=== PATIENT | female | born 1940 | race Caucasian/White ===

== ENCOUNTER 2024-04-20 16:32 | Observation (INO) | payer MEDICARE, OTHER, MEDICAID, SELFPAY ==
[2024-04-20 16:34] VITALS: BP 152/135; PULSE 74; RESP 16; TEMP 36.1; O2SAT 99; BMI 20.1
--- NOTE | 2024-04-20 16:41 | RAD_ITS ---
PROCEDURE: SHOULDER MIN 2 VIEWS REASON FOR EXAM: Trauma TECHNIQUE: Two views of the left shoulder COMPARISON: None. FINDINGS: No acute fracture or dislocation.Degenerative spurring is present at the humeral aspect of the glenohumeral joint. No soft tissue abnormality. The visualized lung zavaleta are clear. RAD/Shoulder min 2 Views IMPRESSION: 1. No acute findings. Reading Location: [facility]
--- NOTE | 2024-04-20 16:42 | EX.ED.UPPERE ---
HPI History of Present Illness Chief Complaint: Dislocation Narrative Narrative: 84-year-old female who denies significant past medical history, right hand dominant presents status post fall onto her left shoulder. She states that she was walking and tripped, and fell onto her left shoulder. She denies hitting her head or loss of consciousness, no neck pain or other injury. She now has pain diffusely throughout her left shoulder and upper arm with difficulty moving it. EMS noted deformity/possible dislocation of left shoulder. She did take a [place] tablet prior to arrival. PFSH [facility] Home Medications ?Medication ?Instructions ?Recorded ?Last Taken ?Type aspirin 81 mg tablet,delayed mg DAILY 04/20/24 Unknown History release atorvastatin 10 mg tablet mg DAILY 04/20/24 Unknown History calcium 500 mg (as tab 04/20/24 Unknown History carbonate)-vitamin D3 5 mcg (200 unit) tablet (Oyster Shell Calcium-Vitamin D3) clopidogrel 75 mg tablet mg DAILY 04/20/24 Unknown History donepezil 5 mg tablet mg DAILY 04/20/24 Unknown History ergocalciferol (vitamin D2) 1,250 04/20/24 Unknown History mcg (50,000 unit) capsule gabapentin 300 mg capsule mg 04/20/24 Unknown History isosorbide mononitrate 60 mg mg PO DAILY 04/20/24 Unknown History tablet,extended release 24 hr levothyroxine 50 mcg tablet mcg DAILY 04/20/24 Unknown History losartan 25 mg tablet mg DAILY 04/20/24 Unknown History metoprolol succinate 50 mg mg PO DAILY 04/20/24 Unknown History tablet,extended release 24 hr mirtazapine 7.5 mg tablet mg 04/20/24 Unknown History omega 2-bji-tby-fish oil 300 1 cap PO DAILY 04/20/24 Unknown History mg-1,000 mg capsule (Fish Oil) pantoprazole 40 mg tablet,delayed mg PO DAILY 04/20/24 Unknown History release sucralfate 1 gram tablet 04/20/24 Unknown History Allergy/AdvReac Type Severity Reaction Status Date / Time codeine AdvReac Intermediate UNKNOWN Verified 04/20/24 16:34 Social History Smoking Status: Never smoker ROS ROS ED ROS Narrative Review of systems positive for left shoulder pain and limited range of motion secondary to pain. No headache. No neck pain. Denies other injuries. Patient states she is status post mechanical fall. EXAM Physical Exam Narrative Exam Narrative: GCS 15. ABCs intact. HEENT examination grossly unremarkable, PERRL, EOMI. Neck soft and supple. Examination of the left shoulder shows diffuse tenderness to palpation about the proximal humerus. She is holding her shoulder anteriorly. No crepitance. No clavicular tenderness. Palpable radial pulse, left. Lungs clear to auscultation bilaterally. Cardiovascular examination reveals a regular rate and rhythm. Abdomen soft and nontender. Const Vital Signs: 04/20/24 16:34 Temperature 96.9 F L Temperature Source Temporal Pulse Rate 74 Respiratory Rate 16 Blood Pressure 152/135 H Blood Pressure Mean 140 Pulse Ox 99 MDM MDM MDM Narrative Medical decision making narrative: Differential diagnosis includes but not limited to shoulder contusion versus proximal humerus fracture versus left shoulder dislocation versus fracture dislocation. X-rays will be obtained of the left shoulder and saline inserted to administer analgesia. Patient received morphine initially as well as ondansetron. On my independent interpretation of the x-ray of the proximal humerus, there is an impacted fracture. I also discussed this with the radiologist. In discussion with the patient's and the patient herself, as she will be placed in a sling and swath, her activities of daily living are limited. I will obtain baseline laboratories and discussed the patient with the hospitalist for observation as she may require temporary placement in a long term facility versus home physical therapy/Occupational Therapy. Disposition is assigned observation. Patient is in stable condition. I discussed patient with Dr. Kavitha Mendez. She requested that x-rays of the left knee and of the left tibia and fibula be obtained secondary to tenderness to palpation. On my independent interpretation of the x-ray of the left tibia and fibula, there is no acute fracture. Additionally on my independent interpretation of the left knee, there is no evidence of acute fracture or effusion. I reviewed the radiology reports of these x-rays and they confirm my independent interpretations. Disposition was admitted in stable condition. History & Record Review Discussion w/independent historian: Patient Radiography X-Ray: Read by ED Physician and Fracture Management Discussion w/another healthcare provider: Hospitalist (Dr. Kavitha Mendez) and Radiologist Discharge Plan Dx/Rx/DC Orders Clinical Impression: Closed fracture of humerus, Physical debility, Hypertension Disposition Disposition: Acute Care Hospital [facility] Discharge Date/Time: 04/20/24 21:11
[2024-04-20] MEDS: Ondansetron 4 MG/2 ML Vial IV (16:50)
[2024-04-20] MEDS: Morphine 4 MG/ML Syringe IV (16:52)
[2024-04-20 18:20] LABS: Absolute Lymphocyte Count 1.48 X10^3/uL (0.83-4.51); Absolute Neutrophil Count 5.8 X10^3/uL (2.0-7.7); Basophil# 0.04 X10^3/uL; Basophil% 0.5 % (0-1); Eosinophil# 0.13 X10^3/uL; Eosinophils% 1.6 % (0-5); Hematocrit 33.6 % (37-47); Hemoglobin 10.3 g/dL (12.0-15.0); Lymphocyte # 1.48 X10^3/ul (0.83-4.51); Lymphocyte % 17.7 % (19-41); Mean Corp Hgb Conc 30.7 g/dL (32-36); Mean Corpuscular Hgb 27.1 pg (27.0-32.0); Mean Corpuscular Volume 88.4 fL (81-99); Mean Platelet Vol. 11.4 fl (6.2-12.0); Monocyte# 0.85 X10^3/uL; Monocyte% 10.2 % (0-10); NRBC Flagged by Analyzer 0 % (0-5); Neutrophil # 5.83 X10^3/uL (2.7-7.7); Neutrophil % 69.8 % (47-70); Platelet Count 346 K/mm3 (150-450); RBC Distribution Width CV 15.9 % (11.6-14.6); RBC Distribution Width SD 51.1 fl (35.1-43.9); White Blood Count 8.4 K/mm3 (4.4-11.0)
[2024-04-20 18:33] VITALS: BP 149/84; O2SAT 100
[2024-04-20 18:39] LABS: Anion Gap 10 (5-15); BUN 11 mg/dL (7-18); BUN/Creat Ratio 7.9 RATIO (10-20); Calcium,Total 9.3 mg/dL (8.5-10.1); Chloride 109 mmol/L (98-107); EST Glomerular Filtration Rate 38 mL/min (>60); Est Glom Filt Rate - Afr Amer 46 mL/min (>60); Estimated Creatinine Clearance 24.67 ml/min; Glucose 116 mg/dL (74-106); Potassium 3.8 mmol/L (3.5-5.1); Sodium Level 140 mmol/L (136-145)
[2024-04-20 19:17] VITALS: BP 149/84; PULSE 74; RESP 16; TEMP 36.1; O2SAT 100
[2024-04-20 20:00] VITALS: BP 130/88; PULSE 81; RESP 20; O2SAT 99
--- NOTE | 2024-04-20 20:10 | RAD_ITS ---
PROCEDURE: TIBIA FIBULA 2 VIEWS REASON FOR EXAM: Trauma, pain TECHNIQUE: 2 view(s) of the left tibia and fibula COMPARISON: None. FINDINGS: No fracture. No suspicious bone lesion. Normal alignment at the knee and ankle. Soft tissues are unremarkable. RAD/Tibia & Fibula 2 Views IMPRESSION: 1. No acute abnormality. Reading Location: [facility]
--- NOTE | 2024-04-20 20:10 | RAD_ITS ---
PROCEDURE: KNEE 4 OR MORE VIEWS REASON FOR EXAM: Trauma TECHNIQUE: 4 views of the left knee COMPARISON: 04/20/2024 FINDINGS: No fracture. No suspicious bone lesion. Normal alignment. No effusion. Soft tissues are unremarkable. RAD/Knee 4 or More Views IMPRESSION: 1. No acute abnormality. Reading Location: [facility]
[2024-04-20 20:34] VITALS: BMI 22.8
[2024-04-20 20:35] VITALS: BP 124/73; PULSE 71; RESP 15; TEMP 36.3; O2SAT 95
--- NOTE | 2024-04-20 20:48 | HP.PCM.HOS_ITS ---
HPI - General General Date of Admission: 04/20/24 Date of Service: 04/20/24 Chief Complaint: left shoulder pain HPI Narrative MANNY WHELAN, is a 84-year-old female with history of hypothyroidism, coronary disease, dementia, hypertension, GERD presented [facility] ED 04/20/2024 after a fall. She is right-hand dominant and fell onto her left shoulder. Fall was mechanical. Did not hit her head or lose consciousness. Does note pain through her shoulder prompting EMS call and patient was brought to the ED. In the ED patient alert but hypertensive but overall vitally stable, BMP with creatinine of 1.4 with no baseline and hemoglobin of 10.3. Shoulder x-ray interpreted by ED physician as nondisplaced impaction fracture, initial shoulder x-ray read as negative however after ED physician discussed with radiologist it was determined that there was a left nondisplaced impaction fracture along the lateral aspect of the humeral head. Given patient will be unable to care for self at home and family unable to help care for her hospitalist contacted for admission. Patient evaluated bedside and reports mechanical fall onto her left shoulder and states she tripped over something, denies hitting her head but did hit her left knee when she fell. ROS otherwise negative [facility] Home Medications ?Medication ?Instructions ?Recorded ?Last Taken ?Type aspirin 81 mg tablet,delayed mg DAILY 04/20/24 Unknown History release atorvastatin 10 mg tablet mg DAILY 04/20/24 Unknown Hi story calcium 500 mg (as tab 04/20/24 Unknown History carbonate)-vitamin D3 5 mcg (200 unit) tablet (Oyster Shell Calcium-Vitamin D3) clopidogrel 75 mg tablet mg DAILY 04/20/24 Unknown Hi story donepezil 5 mg tablet mg DAILY 04/20/24 Unknown Hi story ergocalciferol (vitamin D2) 1,250 04/20/24 Unknown Hi story mcg (50,000 unit) capsule gabapentin 300 mg capsule mg 04/20/24 Unknown History isosorbide mononitrate 60 mg mg PO DAILY 04/20/24 Unkn own History tablet,extended release 24 hr levothyroxine 50 mcg tablet mcg DAILY 04/20/24 Unknown History losartan 25 mg tablet mg DAILY 04/20/24 Unknown Hi story metoprolol succinate 50 mg mg PO DAILY 04/20/24 Unknow n History tablet,extended release 24 hr mirtazapine 7.5 mg tablet mg 04/20/24 Unknown History omega 9-vqa-ssz-fish oil 300 1 cap PO DAILY 04/20/24 U nknown History mg-1,000 mg capsule (Fish Oil) pantoprazole 40 mg tablet,delayed mg PO DAILY 04/20/24 Unknown History release sucralfate 1 gram tablet 04/20/24 Unknown History Allergy/AdvReac Type Severity Reaction Status Date / Time codeine AdvReac Intermediate UNKNOWN Verified 04/20/24 16:34 Social History Smoking Status: Never smoker ROS ROS Narrative General: Denies fever/chills HENT: Denies headache, denies stuffy nose, denies sore throat EYES: Denies changes in vision Resp: Denies cough, denies shortness of breath Cardiac: Denies chest pain GI: Denies abdominal pain, denies changes in bowel, denies nausea/vomiting : Denies changes in urination Extremity: Denies swelling MSK: Denies weakness, some left shoulder soreness as well as left knee and chapa soreness Neuro: Denies any numbness/tingling Heme: Denies any bleeding or bruising Skin: Denies rashes Psychiatric: No complaints voiced Vital Signs Vital Signs Vital Signs: 04/20/24 16:34 04/20/24 18:33 04/20/24 19:17 Temperature 96.9 F L 96.9 F L Temperature Source Temporal Pulse Rate 74 74 Respiratory Rate 16 16 Blood Pressure 152/135 H 149/84 H 149/84 H Blood Pressure Mean 140 105 105 Pulse Ox 99 100 100 Oxygen Delivery Method Room Air 04/20/24 20:00 Temperature Temperature Source Pulse Rate 81 Respiratory Rate 20 H Blood Pressure 130/88 H Blood Pressure Mean 102 Pulse Ox 99 Oxygen Delivery Method Weight Weight: 53.2 kg Body Mass Index (BMI) 20.1 Physical Exam Narrative General: Alert, no apparent distress HEENT: Atraumatic, normocephalic Eyes: Anicteric, normal conjunctiva, extraocular movements grossly intact Neck: Supple Respiratory: Clear to auscultation bilaterally, normal respiratory effort Cardiovascular: Regular rate and rhythm GI: Soft, nontender, nondistended Extremities: No edema Musculoskeletal: Left upper extremity sling in place, pain in left knee and left chapa Neuro: No overt focal neurological deficits Skin: Some bruising on left knee and left chapa more so than right Psych: Cooperative Results Lab / Micro Data 04/20/24 16:47 04/20/24 16:47 Labs: Laboratory Results - last 24 hr 04/20/24 16:47: WBC 8.4, RBC 3.80 L, Hgb 10.3 L, Hct 33.6 L, MCV 88.4, MCH 27.1, MCHC 30.7 L, RDW Std Deviation 51.1 H, RDW Coeff of Billy 15.9 H, Plt Count 346, MPV 11.4, Immature Gran % (Auto) 0.200, Neut % (Auto) 69.8, Lymph % (Auto) 17.7 L, Weber % (Auto) 10.2 H, Eos % (Auto) 1.6, Baso % (Auto) 0.5, Absolute Neuts (auto) 5.8, Absolute Lymphs (auto) 1.48, Nucleated RBC % 0, Sodium 140, Potassium 3.8, Chloride 109 H, Carbon Dioxide 21.0, Anion Gap 10, BUN 11, C reatinine 1.40 H, Estim Creat Clear Calc 24.67, Est GFR (MDRD) Af Amer 46 L, Est GFR (MDRD) Non-Af 38 L, BUN/Creatinine Ratio 7.9 L, Glucose 116 H, Calcium 9.3 Imaging Radiology Impression Shoulder X-Ray 04/20/24 16:41 IMPRESSION: 1. No acute findings. Reading Location: [facility] Assessment & Plan Assessment/Plan (1) Closed fracture of humerus: (2) Hypertension: (3) Physical debility: PLAN: Plan # Left shoulder pain, suspected left shoulder fracture -X-ray interpreted by ED and thought to be nondisplaced impaction fracture, this was discussed with radiologist who agreed that this was indicative of a left nondisplaced impaction fracture along the lateral aspect of the humeral head -On further review radiology interpretation did recommend additional shoulder radiograph could be considered for confirmation -Order repeat shoulder x-ray for better characterization for the a.m. -Pain control -PT/OT -Based on this fracture patient was placed in sling in the ED as they usually nonoperative -Will need to follow-up with Ortho #Dementia -Supportive care -Continue home donepezil # Suspect history of CAD -Patient poor historian as she has been given morphine but based on medication list it seems patient likely has history of CAD -She is on statin, clopidogrel, aspirin, Imdur, metoprolol -Will continue home medications #Hypothyroidism -Continue Synthroid #GERD -Continue PPI #Hypertension -Continue metoprolol and Imdur, hold losartan to allow room for pain medication adjustment #DVT ppx: Lovenox acute Kavitha Mendez MD Time spent in the patient's overall evaluation, decision-making process, review of diagnostic data, adjustment of management, discussion with other providers, nursing and ancillary staff involved in patient's care documentation, 56 Minutes Charges/Coding Visit Charges Inpatient E&M: 88747 Init Hosp L2
[2024-04-20] MEDS: Mirtazapine 15 MG Tablet 7.5 MG PO (23:00)
[2024-04-20] MEDS: Acetaminophen 500 MG Tablet 1000 MG PO (23:01)
[2024-04-20] MEDS: 0.9% Normal Saline (1000mL) 1,000 ML 50 ML IV (23:01)
[2024-04-20] MEDS: Arthritis Pain Compound 60 CLICK TUBE TOPICAL (23:02)
[2024-04-20] MEDS: Gabapentin 300 MG Capsule PO (23:10)
[2024-04-21 04:32] VITALS: BP 148/74; PULSE 67; RESP 15; TEMP 36.4; O2SAT 96
[2024-04-21] MEDS: oxyCODONE 5 MG Tablet 2.5 MG PO ×2 (04:45→09:45)
[2024-04-21] MEDS: Levothyroxine 50 MCG Tablet PO (04:45)
[2024-04-21] MEDS: Acetaminophen 500 MG Tablet 1000 MG PO ×3 (04:45→21:31)
[2024-04-21 06:49] LABS: Absolute Lymphocyte Count 1.44 X10^3/uL (0.83-4.51); Absolute Neutrophil Count 3.5 X10^3/uL (2.0-7.7); Basophil# 0.04 X10^3/uL; Basophil% 0.7 % (0-1); Eosinophil# 0.07 X10^3/uL; Eosinophils% 1.2 % (0-5); Hematocrit 29.2 % (37-47); Hemoglobin 9.1 g/dL (12.0-15.0); Lymphocyte # 1.44 X10^3/ul (0.83-4.51); Lymphocyte % 24.1 % (19-41); Mean Corp Hgb Conc 31.2 g/dL (32-36); Mean Corpuscular Hgb 27.3 pg (27.0-32.0); Mean Corpuscular Volume 87.7 fL (81-99); Mean Platelet Vol. 11.1 fl (6.2-12.0); Monocyte# 0.87 X10^3/uL; Monocyte% 14.6 % (0-10); NRBC Flagged by Analyzer 0 % (0-5); Neutrophil # 3.53 X10^3/uL (2.7-7.7); Neutrophil % 59.1 % (47-70); Platelet Count 298 K/mm3 (150-450); RBC Distribution Width CV 15.7 % (11.6-14.6); RBC Distribution Width SD 50.5 fl (35.1-43.9); Red Blood Count 3.33 M/mm3 (4.2-5.4)
[2024-04-21 07:17] LABS: Anion Gap 7 (5-15); BUN 14 mg/dL (7-18); BUN/Creat Ratio 13.5 RATIO (10-20); Calcium,Total 8.6 mg/dL (8.5-10.1); Chloride 111 mmol/L (98-107); Creatinine, Serum 1.04 mg/dL (0.55-1.02); EST Glomerular Filtration Rate 54 mL/min (>60); Est Glom Filt Rate - Afr Amer 65 mL/min (>60); Estimated Creatinine Clearance 28.41 ml/min; Glucose 100 mg/dL (74-106); Potassium 3.7 mmol/L (3.5-5.1); Sodium Level 140 mmol/L (136-145)
[2024-04-21 08:36] VITALS: PULSE 79
[2024-04-21] MEDS: Aspirin E.C. 81 MG Tablet PO (08:36)
[2024-04-21] MEDS: Pantoprazole Sodium 40 MG Tablet PO (08:36)
[2024-04-21] MEDS: Clopidogrel Bisulfate 75 MG Tablet PO (08:36)
[2024-04-21] MEDS: Donepezil HCl 5 MG Tablet PO (08:36)
[2024-04-21] MEDS: Metoprolol(XL)Succ 50 MG Tablet PO (08:36)
[2024-04-21] MEDS: Arthritis Pain Compound 60 CLICK TUBE TOPICAL ×2 (08:37→21:31)
[2024-04-21] MEDS: Isosorbide Mononitrate 60 MG Tablet PO (08:38)
[2024-04-21] MEDS: Atorvastatin Calcium 10 MG Tablet PO ×2 (08:39→21:31)
[2024-04-21] MEDS: Enoxaparin 30 MG/0.3 ML Syringe SC (08:40)
[2024-04-21] MEDS: Gabapentin 300 MG Capsule PO ×2 (08:40→21:31)
[2024-04-21 09:36] VITALS: BP 104/48; PULSE 79; RESP 16; TEMP 36.4; O2SAT 96
--- NOTE | 2024-04-21 10:46 | CASEMGMT ---
SHERI CORMIER Assessment: Face to Face with pt for initial transition planning/care coordination assessment. SHERI CORMIER introduced self and role at [facility], pt voices understanding and consents to assessment. Pt is A&O x4 and answers all questions appropriately at this time. Pt sitting up in chair in no distress. Care providers, pharmacy, and demographics verified/updated. Strata: 1 Admitting Dx: L shoulder pain concern for fracture. PCP: Elin Specialists: Denies Preferred Pharmacy: [facility] Insurance: [employer]IN [employer]EM[employer] Prescription Benefit: yes LNOK: Daughter, Valerie Living Arrangements: Pt lives with in 1 level home with 2 steps to enter. ADLs: Pt states I at baseline, has a in school suspension aide that comes and assists. Transportation: Pt provides transportation. DME: [facility]/SNF: Eduardo has a in school suspension aide. Pt states no concerns with going home at time of dc. Pt states no further concerns/needs. CM to follow. Advised pt to ask CM if any further question/concerns/needs arise, voices understanding. Pt Goal: Home Plan: Home, follow for safe DC plan.
[2024-04-21 11:27] VITALS: BP 98/42; PULSE 79; RESP 18; TEMP 36.4; O2SAT 100
--- NOTE | 2024-04-21 13:09 | RAD_ITS ---
EXAM: XR Left Shoulder Complete, 2 or More Views CLINICAL INDICATION: TECHNIQUE: Two or more views of the left shoulder. COMPARISON: No relevant prior studies available. FINDINGS: BONES/JOINTS: Cortical irregularity of the humeral neck, likely impacted fracture. No dislocation. SOFT TISSUES: Soft tissue swelling. RAD/Shoulder min 2 Views IMPRESSION: Cortical irregularity of the humeral neck, likely impacted fracture. Reading Location: [facility]
--- NOTE | 2024-04-21 14:19 | CASEMGMT ---
Addendum entered by Kaity Hurst 04/21/24 16:05: SHERI CORMIER into pt room, pt who is very PLATINUM is present as well as step dtr. states he has back fx and is there 24 hours a day for pt and can provide stability to her for walking but can't help if she falls. He state they have an aide that can increase hours to 15-20/wk through [employer]. He states pt only walks to the bathroom and to bed. He states she is stubborn and bullheaded like he is and she is a strong woman. Pt did not engage in this conversation at all, other than saying I am sick. Pt states he will be back tomorrow at 2pm to get pt. He is aware that this will depend if pt is medically ready and how her therapy session goes. He states pt will not go anywhere for rehab and pt confirms. SHERI CORMIER to follow. Step dtr does not offer any information to the conversation either. SHERI CORMIER to follow. Original Note: SHERI CORMIER into pt room, pt sitting up in bed in no distress. Pt states her was asking if she is coming home today. Discussed with pt to see if she has 24 hour care at home. She states her is always there and can assist her. She states he is in good health. SHERI CORMIER asked to call him and she states he has the same phone number as she does, noted he is not listed on contacts. Asked pt about her dtr listed, she states she does not have a dtr. Asked who this was and she states it is her step dtr. Pt denies need for any homegoing services, declines [facility]. Pt is oriented x3. TC to , no answer and no vm. TC to dtr listed, left vm requesting returned call.
--- NOTE | 2024-04-21 14:41 | CASEMGMT ---
Met with patient to complete CEBALLOS form. CEBALLOS form explained to patient who voiced understanding but stated she was too ill to sign form. Original form placed in pt?s chart and copy provided to patient. Dayanara Augustine, Discharge Planning Asst
[2024-04-21] MEDS: Ondansetron ODT 4 MG Tablet PO (14:58)
[2024-04-21 15:35] VITALS: BP 91/56; PULSE 71; RESP 16; TEMP 36.4; O2SAT 95
--- NOTE | 2024-04-21 19:51 | PN.HOSP_ITS ---
Reason for Visit Reason for Visit: Diagnoses Essential (primary) hypertension (04/20/24) Other malaise (04/20/24) Unspecified fracture of shaft of humerus, unspecified arm, initial encounter for closed fracture (04/20/24) Subjective Subjective Patient was seen and examined today, according to case management, patient's family wants to take the patient home tomorrow rather than have her go to a skilled care facility. Objective Data Objective Data Vital Signs: Vital Signs Temp Pulse Resp BP Pulse Ox O2 Del Method 97.5 F L 71 16 91/56 L 95 Room Air 04/21/24 15:35 04/21/24 15:35 04/21/24 15:35 04/21/24 15:35 04/21/24 15:35 04/21/24 15:35 Oxygen Delivery Method Room Air Weight: 51.2 kg Body Mass Index (BMI) 22.8 Intake & Output: Intake and Output for Last 24 Hours 04/19/24 04/20/24 04/21/24 23:59 23:59 23:59 Intake Total 0 / 200 1628.33 / 1628.33 Output Total 450 / 450 Balance 0 / 200 1178.33 / 1178.33 Lab / Micro Data 04/21/24 06:27 04/21/24 06:27 Labs: Laboratory Results - last 24 hr 04/21/24 06:27: WBC 6.0, RBC 3.33 L, Hgb 9.1 L, Hct 29.2 L, MCV 87.7, MCH 27.3, MCHC 31.2 L, RDW Std Deviation 50.5 H, RDW Coeff of Billy 15.7 H, Plt Count 298, MPV 11.1, Immature Gran % (Auto) 0.300, Neut % (Auto) 59.1, Lymph % (Auto) 24.1, [place] % (Auto) 14.6 H, Eos % (Auto) 1.2, Baso % (Auto) 0.7, Absolute Neuts (auto) 3.5, Absolute Lymphs (auto) 1.44, Nucleated RBC % 0, Sodium 140, Potassium 3.7, Chloride 111 H, Carbon Dioxide 22.0, Anion Gap 7, BUN 14, Creatinine 1.04 H, Estim Creat Clear Calc 28.41, Est GFR (MDRD) Af Amer 65, Est GFR (MDRD) Non-Af 54 L, BUN/Creatinine Ratio 13.5, Glucose 100, Calcium 8.6 Radiography Diagnostic Testing: Radiology Impression Knee X-Ray 04/20/24 20:10 IMPRESSION: 1. No acute abnormality. Reading Location: [facility] Tibia/Fibula X-Ray 04/20/24 20:10 IMPRESSION: 1. No acute abnormality. Reading Location: [facility] Shoulder X-Ray 04/21/24 13:09 IMPRESSION: Cortical irregularity of the humeral neck, likely impacted fracture. Reading Location: [facility] Physical Exam Const alert and no apparent distress General Appearance: cooperative, well kempt and well developed Orientation / Consciousness: awake, oriented to person and oriented to place HEENT normocephalic, head/scalp atraumatic and moist oral mucous membranes Eyes PERRL, EOMs intact bilaterally and conjunctivae normal Neck supple, no JVD, thyroid normal and no carotid bruits General: trachea midline Resp normal respiratory effort, no retractions, no use of accessory muscles and clear to auscultation bilaterally Auscultation: Negative for rales, rhonchi or wheezes Cardio regular rate, regular rhythm, S1 normal heart sound, S2 normal heart sound, no murmurs, no rub and no gallops GI normal to inspection, nondistended, normoactive bowel sounds, soft to palpation, non-tender and non-distended Extremity no clubbing, cyanosis or edema Extremity Narrative: Patient's left arm is in a sling at the time my examination Skin no rashes or lesions noted General Skin Exam: no breakdown Neuro CN's II-XII intact bilaterally, no focal motor deficits and no sensory deficits noted Sensorium / Orientation: awake, alert, oriented to person and oriented to place Speech: speech normal Psych Psych Narrative: Patient is a poor informant Assessment & Plan Assessment/Plan (1) Closed fracture of humerus: PLAN: Plan 1. Acute debility secondary to fracture of the proximal left humerus-PT and OT will continue to work with the patient, again patient's family want to take the patient home tomorrow, I will talk with case management concerning this. I talked briefly with orthopedic surgery by phone tonight (Dr. Martinez) he does not need to see the patient while she is hospitalized and will follow-up with her in the office as an outpatient. He recommended repeating x-rays in 1- 2 weeks and using a simple sling. #2 essential hypertension-patient will remain on her current medications #3 dementia-complicates care, management, recovery, and prognosis I will have nursing confirm her medications Total clinical time spent by myself addressing the patient's medical issues, reviewing her data, and collaborating with patient's care team: 35 minutes Charges/Coding Visit Charges Inpatient E&M: 03341 Subs Hosp L2
[2024-04-21 20:21] VITALS: BP 144/69; PULSE 73; RESP 15; TEMP 36.7; O2SAT 94
[2024-04-21] MEDS: Mirtazapine 15 MG Tablet 7.5 MG PO (21:30)
[2024-04-22 02:23] VITALS: BP 120/66; PULSE 65; RESP 16; TEMP 36.6; O2SAT 93
[2024-04-22] MEDS: Levothyroxine 50 MCG Tablet PO (05:09)
[2024-04-22] MEDS: Acetaminophen 500 MG Tablet 1000 MG PO ×2 (05:09→14:08)
[2024-04-22 08:00] VITALS: BP 123/58; PULSE 78
[2024-04-22] MEDS: Metoprolol(XL)Succ 50 MG Tablet PO (08:00)
[2024-04-22] MEDS: Enoxaparin 30 MG/0.3 ML Syringe SC (08:00)
[2024-04-22] MEDS: Clopidogrel Bisulfate 75 MG Tablet PO (08:00)
[2024-04-22] MEDS: Pantoprazole Sodium 40 MG Tablet PO (08:00)
[2024-04-22] MEDS: Donepezil HCl 5 MG Tablet PO (08:00)
[2024-04-22] MEDS: Losartan Potassium 25 MG Tablet PO (08:00)
[2024-04-22] MEDS: Aspirin E.C. 81 MG Tablet PO (08:01)
[2024-04-22] MEDS: Isosorbide Mononitrate 60 MG Tablet PO (08:02)
[2024-04-22] MEDS: Arthritis Pain Compound 60 CLICK TUBE TOPICAL (08:02)
[2024-04-22] MEDS: Gabapentin 300 MG Capsule PO (08:08)
[2024-04-22 08:20] VITALS: BP 123/58; PULSE 78; RESP 16; TEMP 36.3; O2SAT 92
--- NOTE | 2024-04-22 10:24 | CASEMGMT ---
Addendum entered by Elizabeth Bower 04/22/24 13:22: ADI spoke with Rosa Elena who inquired about having PT documentation that would support a lift chair. ADI reached out to therapy who reports that they will include documentation in progress note. ADI updated Rosa Elena. ADI will fax when document available. DANUTA Maxwell Original Note: Social Work- ADI spoke with Donta Cuba CM, who reports that the family called in asking for increased aide service and a lift chair. Rosa Elena reports that she cannot address either of those until she meets with the patient in person and reports that the chair could take a week to obtain. Rosa Elena reports that the pt currently has seven meals per week, a medical alert, and aide service Sunday, Sunday, and Sunday for 4 hours and Sunday and for one hour. Dasha reports that pt spouse has had multiple prostrate surgeries which have impacted his ability to assist pt. ADI shared that pt spouse is refusing SNF placement for pt and plans to take pt home today. ADI remains available to follow for additional discussions regarding discharge planning. RNCM updated. Rosa Elena contact [phone] and fax [phone]. DANUTA Maxwell
[2024-04-22 13:14] VITALS: BP 123/59; PULSE 69; RESP 20; TEMP 36.3; O2SAT 95
[2024-04-22 13:19] VITALS: PULSE 69; RESP 20; O2SAT 95
[2024-04-22 14:15] VITALS: BP 138/58; PULSE 67; RESP 18; TEMP 36.6; O2SAT 96
--- NOTE | 2024-04-22 15:10 | CASEMGMT ---
Addendum entered by Kaity Hurst 04/22/24 15:28: Received notification that pt will dc today. SHERI CORMIER back into pt room, student nurse present. Pt and aware that pt will dc today. requests w/c to take him out to get pt clothes, audio visual secretary called for one. Pt and aware that if they get home and change their minds about having [facility] for therapy to notify PCP. They both verbalize understanding. Original Note: SHERI CORMIER spoke with NEEMA who states she had a hand on pt during session but that pt did not need assistance. SHERI CORMIER into pt room, pt present. He states that pt lift chair was ordered as the CM was just in the room. He is here to take pt home. Message sent to hospitalist to see if pt can dc today. PT and deny need for other homegoing services at this time.
--- NOTE | 2024-04-22 15:34 | DCINST_ITS ---
Discharge Instructions Diet Discharge Diet: No restrictions DC O2, CPAP, BIPAP needs Home O2 Discharge instructions: No Dressing / Incision Discharge Activity: - (Maintain left arm in a sling for comfort) Weight Bearing Status: Full weight bearing Follow Up Care Test Results: Test results from this visit will be discussed in further detail at your follow- up appointment, if applicable. Discharge Plan Admission Admit Date/Time: 04/20/24 20:48 Primary Reason for Your Visit: Left proximal humerus fracture Attending Provider: Jignesh Berrios Primary Care Provider: Jamie Worthington Consulting Providers: Kavitha Mendez Instructions Additional Instructions / Restrictions: You will need your left shoulder x-rayed again in 1 to 2 weeks, follow-up with your family physician Discharge Orders/Prescriptions Prescriptions: New acetaminophen 500 mg Tablet 1,000 mg PO Q8 Qty: 0 0RF Continued donepezil 5 mg tablet 5 mg PO QHS atorvastatin 10 mg tablet 80 mg PO QHS clopidogrel 75 mg tablet 75 mg PO DAILY aspirin 81 mg tablet,delayed release (DR/EC) 81 mg PO DAILY ergocalciferol (vitamin D2) 1,250 mcg (50,000 unit) capsule 1,250 mcg PO FR calcium carbonate-vitamin D3 [Oyster Shell Calcium-Vit D3] 500 mg-5 mcg (200 unit) tablet 2 tab PO QHS omega 5-lsd-jdg-fish oil [Fish Oil] 300-1,000 mg capsule 3 cap PO DAILY metoprolol succinate 50 mg tablet extended release 24 hr 50 mg PO BID sucralfate 1 gram tablet 1 g PO BIDAC isosorbide mononitrate 60 mg tablet extended release 24 hr 60 mg PO DAILY levothyroxine 50 mcg tablet 50 mcg PO DAILY pantoprazole 40 mg tablet,delayed release (DR/EC) 40 mg PO QHS losartan 25 mg tablet 25 mg PO DAILY gabapentin 300 mg capsule 300 mg PO BID Patient Comments: [NO ORIGINAL SIG] mirtazapine 7.5 mg tablet 7.5 mg PO QHS cyanocobalamin (vitamin B-12) 1,000 mcg tablet 1,000 mcg PO DAILY guaifenesin 600 mg tablet extended release 12hr 600 mg PO BID Patient Comments: [NO ORIGINAL SIG] Referrals / Follow Up: Jamie Worthington, [Primary Care Provider] - In 1 Week (You will need repeat x- rays of your left shoulder in 1 to 2 weeks) Jamie Worthington [[facility]] - Disposition Disposition (needs filled in before D/C Order can be placed): Home, Self Care
--- NOTE | 2024-04-22 15:38 | PCM.DC.SUM ---
Providers Date of Admission: 04/20/24 Date of Discharge: 04/22/24 Primary Care Physician: Dr. Jamie Worthington DO Reason For Visit: LEFT SHOULDER PAIN CONCERN FOR FRACTURE Diagnosis Discharge Diagnosis (1) Closed fracture of humerus: Status: Acute Code(s): S42.309A - Unspecified fracture of shaft of humerus, unspecified arm, initial encounter for closed fracture Plan 1. Acute debility secondary to fracture of the proximal left humerus-PT and OT will continue to work with the patient, again patient's family want to take the patient home tomorrow, I will talk with case management concerning this. I talked briefly with orthopedic surgery by phone tonight (Dr. Martinez) he does not need to see the patient while she is hospitalized and will follow-up with her in the office as an outpatient. He recommended repeating x-rays in 1- 2 weeks and using a simple sling. #2 essential hypertension-patient will remain on her current medications #3 dementia-complicates care, management, recovery, and prognosis I will have nursing confirm her medications Total clinical time spent by myself addressing the patient's medical issues, reviewing her data, and collaborating with patient's care team: 35 minutes Medications at Discharge Home Medications aspirin 81 mg tablet,delayed release 81 mg PO DAILY Heart health 04/20/24 atorvastatin 10 mg tablet 80 mg PO QHS cholestrol 04/20/24 calcium 500 mg (as carbonate)-vitamin D3 5 mcg (200 unit) tablet (Oyster Shell Calcium-Vitamin D3) 2 tab PO QHS supplement 04/20/24 clopidogrel 75 mg tablet 75 mg PO DAILY Blood thinner 04/20/24 donepezil 5 mg tablet 5 mg PO QHS BP 04/20/24 ergocalciferol (vitamin D2) 1,250 mcg (50,000 unit) capsule 1,250 mcg PO FR supplement 04/20/24 gabapentin 300 mg capsule 300 mg PO BID 04/20/24 isosorbide mononitrate 60 mg tablet,extended release 24 hr 60 mg PO DAILY Heart failure 04/20/24 levothyroxine 50 mcg tablet 50 mcg PO DAILY 04/20/24 losartan 25 mg tablet 25 mg PO DAILY BP 04/20/24 metoprolol succinate 50 mg tablet,extended release 24 hr 50 mg PO BID 04/20/24 mirtazapine 7.5 mg tablet 7.5 mg PO QHS 04/20/24 omega 2-cui-dxk-fish oil 300 mg-1,000 mg capsule (Fish Oil) 3 cap PO DAILY 04/20/24 pantoprazole 40 mg tablet,delayed release 40 mg PO QHS GERD 04/20/24 sucralfate 1 gram tablet 1 g PO BIDAC 04/20/24 cyanocobalamin (vitamin B-12) 1,000 mcg tablet 1,000 mcg PO DAILY 04/22/24 guaifenesin 600 mg tablet, extended release 12 hr 600 mg PO BID 04/22/24 Hospital Course Operations None Procedures None Summary of Care Provided Minutes Spent on Discharge: 31 Hospital Course: This 84-year-old white female was seen in the emergency room at [facility] after sustaining a fall at home and injuring her left shoulder, x-rays in the emergency room showed the presence of the proximal left humerus fracture. Patient was placed in observation on MedSurg 3 and seen by physical therapy, physical therapy felt that the patient should go to an extended care facility but the patient's family requested that she be discharged home and that they could take care of her. I checked with orthopedic surgery by phone to see if they needed to see the patient in the hospital and they did not feel they needed to, they wanted to see the patient within 1 to 2 weeks after discharge from the hospital. On 04/22/2024, patient was seen and examined:alert and no apparent distress General Appearance: cooperative, well kempt and well developed Orientation / Consciousness: awake, oriented to person and oriented to place HEENT normocephalic, head/scalp atraumatic and moist oral mucous membranes Eyes PERRL, EOMs intact bilaterally and conjunctivae normal Neck supple, no JVD, thyroid normal and no carotid bruits General: trachea midline Resp normal respiratory effort, no retractions, no use of accessory muscles and clear to auscultation bilaterally Auscultation: Negative for rales, rhonchi or wheezes Cardio regular rate, regular rhythm, S1 normal heart sound, S2 normal heart sound, no murmurs, no rub and no gallops GI normal to inspection, nondistended, normoactive bowel sounds, soft to palpation, non-tender and non-distended Extremity no clubbing, cyanosis or edema Extremity Narrative: Patient's left arm is in a sling at the time my examination Skin no rashes or lesions noted General Skin Exam: no breakdown Neuro CN's II-XII intact bilaterally, no focal motor deficits and no sensory deficits noted Sensorium / Orientation: awake, alert, oriented to person and oriented to place Speech: speech normal Psych Psych Narrative: Patient is a poor informant Patient was discharged home in stable condition on 04/22/2024 Weight / BMI Weight Weight: 51.2 kg Body Mass Index (BMI) 22.8 ABG / Lab / Microbiology Data 04/21/24 06:27 04/21/24 06:27 D/C Instructions Discharge Diet: No restrictions Weight Bearing Status: Full weight bearing DC O2, CPAP, BIPAP Needs Home O2 Discharge instructions: No Meaningful Use Info Meaningful Use Meaningful Use Diagnoses (Choose all that apply): None applicable Ischemic Stroke Statin Dosing Therapy Reference: STATIN DOSE THERAPY REFERENCE: * Patients > 75 years receive moderate or high dose statin therapy. * Patients 75 years or YOUNGER should receive HIGH intensity statin dose unless contraindicated. You will be required to document reason for non-treatment if statin daily dose does not meet guidelines. HIGH DOSE STATIN THERAPY DAILY Atorvastatin > than or = to 40 mg Rosuvastatin > than or = to 20 mg Amlodipine + Atorvastatin > than or = to 2.5/40 mg Ezetimibe + Simvastatin 10/80 mg Simvastatin 80mg Discharge Plan Admission Admit Date/Time: 04/20/24 20:48 Primary Reason for Your Visit: Left proximal humerus fracture Attending Provider: Jignesh Berrios Primary Care Provider: Jamie Worthington Consulting Providers: Kavitha Mendez Instructions Additional Instructions / Restrictions: You will need your left shoulder x-rayed again in 1 to 2 weeks, follow-up with your family physician Discharge Orders/Prescriptions Prescriptions: Continued donepezil 5 mg tablet 5 mg PO QHS atorvastatin 10 mg tablet 80 mg PO QHS clopidogrel 75 mg tablet 75 mg PO DAILY aspirin 81 mg tablet,delayed release (DR/EC) 81 mg PO DAILY ergocalciferol (vitamin D2) 1,250 mcg (50,000 unit) capsule 1,250 mcg PO FR calcium carbonate-vitamin D3 [Oyster Shell Calcium-Vit D3] 500 mg-5 mcg (200 unit) tablet 2 tab PO QHS omega 3-thw-llj-fish oil [Fish Oil] 300-1,000 mg capsule 3 cap PO DAILY metoprolol succinate 50 mg tablet extended release 24 hr 50 mg PO BID sucralfate 1 gram tablet 1 g PO BIDAC isosorbide mononitrate 60 mg tablet extended release 24 hr 60 mg PO DAILY levothyroxine 50 mcg tablet 50 mcg PO DAILY pantoprazole 40 mg tablet,delayed release (DR/EC) 40 mg PO QHS losartan 25 mg tablet 25 mg PO DAILY gabapentin 300 mg capsule 300 mg PO BID Patient Comments: [NO ORIGINAL SIG] mirtazapine 7.5 mg tablet 7.5 mg PO QHS cyanocobalamin (vitamin B-12) 1,000 mcg tablet 1,000 mcg PO DAILY guaifenesin 600 mg tablet extended release 12hr 600 mg PO BID Patient Comments: [NO ORIGINAL SIG] Referrals / Follow Up: Jamie Worthington DO [Primary Care Provider] - In 1 Week (You will need repeat x-rays of your left shoulder in 1 to 2 weeks) Jamie Worthington [[facility]] - Disposition Disposition (needs filled in before D/C Order can be placed): Home, Self Care Charges/Coding Visit Charges Inpatient E&M: 24895 Disch Hosp >30min
--- NOTE | 2024-04-22 16:10 | CASEMGMT ---
Social Work- Pt spouse is adamant that pt discharge home. ADI discussed discharge plans with therapy who report that she can go short distances, which are functionally what pt spouse reports her needing to do at home. ADI spoke with [facility] who reports that she is working to increase aide hours and secure a lift chair. Rosa Elena met with pt and pt spouse in pt room. Pt spouse insists on pt discharging home; physician advised. RNCM meeting with pt and pt spouse. ADI faxed discharge instructions to [facility]. DANUTA Maxwell
--- NOTE | 2024-04-23 15:27 | CASEMGMT ---
Social Work- ADI followed up with [facility] and faxed amended PT eval with jane for lift chair. ADI called and left a voicemail for Rosa Elena as well. DANUTA Joseph
== END 2024-04-22 16:24 | disposition home or self-care (01) ==
LOC: ED 19:35 → MS3 19:58
PROVIDERS: Admitting Provider Internal Medicine; Emergency Provider Emergency Medicine; PCP Family Medicine; Visit Provider Internal Medicine
DX: S42.202A Unspecified fracture of upper end of left humerus, initial encounter for closed fracture (principal); F03.90 Unspecified dementia, unspecified severity, without behavioral disturbance, psychotic disturbance, mood disturbance, and anxiety; I10 Essential (primary) hypertension; Z79.890 Hormone replacement therapy; I25.10 Atherosclerotic heart disease of native coronary artery without angina pectoris; Z79.02 Long term (current) use of antithrombotics/antiplatelets; W01.0XXA Fall on same level from slipping, tripping and stumbling without subsequent striking against object, initial encounter; E03.9 Hypothyroidism, unspecified; Z79.899 Other long term (current) drug therapy; Z79.82 Long term (current) use of aspirin; Y93.01 Activity, walking, marching and hiking; K21.9 Gastro-esophageal reflux disease without esophagitis
CPT/HCPCS: 36415; 73030; 73564; 73590; 80048; 85025; 96372; 96374; 96375; 97162; 97166; 97535; 99221; 99285; A4216; G0378; J2405